=== PATIENT | male | born 1975 | race Caucasian/White ===

== ENCOUNTER 2019-01-21 12:20 | Day surgery (SDC) | payer BC ==
[~2019-01-21 12:20] MED LIST: ACETAMINOPHEN 1,000 MG/100 ML BTL IVPB ONE; CEFAZOLIN 1 Gram 1 GM/50 ML BAG IVPB ONE; CEFAZOLIN 1G VIAL IVP ONE; WATER STERILE FOR INJECTION 20 ML VIAL MC ONE
[2019-01-21] MEDS ORDERED: LIDOCAINE 2% MDV (20MG/ML) 20ML VIAL IV ONE (12:21)
[2019-01-21] MEDS ORDERED: DEXAMETHASONE 4 MG/ML 1ML VIAL IVP ONE (12:21)
[2019-01-21] MEDS ORDERED: DESFLURANE 240 ML BTL INH ONE (12:21)
[2019-01-21] MEDS ORDERED: KETOROLAC 30 MG/ML VIAL IVP ONE (12:21)
[2019-01-21] MEDS ORDERED: MIDAZOLAM HCL 2MG/2ML VIAL IV ONE (12:21)
[2019-01-21] MEDS ORDERED: FENTANYL PF 100MCG/2ML VIAL IV ONE (12:21)
[2019-01-21] MEDS ORDERED: ONDANSETRON HCL IV 4 MG/2 ML VIAL IVP ONE (12:21)
[2019-01-21] MEDS ORDERED: PROPOFOL 10 MG/ML VIAL IV ONE (12:21)
[2019-01-21] MEDS ORDERED: RINGERS SOLUTION,LACTATED 1,000 ML IV ONE (13:55)
[2019-01-21] MEDS ORDERED: CEFAZOLIN 2 Gram 2 GM/50 ML BAG IVPB SCH (14:30)
[2019-01-21] MEDS ORDERED: METHYLPREDNISOLONE 40MG/VIAL IU ONE (15:59)
[2019-01-21] MEDS ORDERED: BUPIVACAINE 0.5% W/EPI MPF 30 ML VIAL SQ ONE (16:00)
[2019-01-21] MEDS ORDERED: HYDROCODONE/APAP 7.5/325MG TABLET PO ONE (16:45)
--- NOTE | 2019-01-24 09:51 | Operative Note ---
DATE OF SURGERY: 01/21/2019 PREOPERATIVE DIAGNOSIS: Left knee arthrosis medial plica. POSTOPERATIVE DIAGNOSIS: Left knee arthrosis medial plica. OPERATION: 1. Diagnostic arthroscopy. 2. Arthroscopic debridement. 3. Chondroplasty of patella and femoral trochlea. 4. Arthroscopic excision of medial plica. SURGEON: Berhane Quesada M.D. ANESTHESIA: LMA. ANESTHESIA PROVIDER: PATRICIA Bhagat CRNA COMPLICATIONS: None. ESTIMATED BLOOD LOSS: None. 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 INDICATION: A 43-male who has had persistent pain and dysfunction in his knee for several years. 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 He is scheduled for the procedure above. I explained all risks and benefits in detail for his diagnosis and procedures, including, but not limited to, infection, nerve injury, vessel injury, persistent pain symptoms, numbness, tingling in his knee, infected arthrosis of his knee and the procedure could not cure the condition, could require any further procedures and all of his questions were answered for him, the course was outlined and he agreed to proceed. PROCEDURE: The patient was brought to the OR and placed in the supine position and prepped for surgery. LMA anesthesia was induced. His left lower extremity and knee were prepped and draped in sterile fashion. The left knee was prepped again with Chloraprep and draped and intraoperative timeout was performed. Next, the knee was injected with 0.5% Marcaine with epinephrine. Standard superior and lateral portals were established, an inferior medial lateral portal was established, diagnostic arthroscopy was performed. The parapatellar pouch, suprapatellar pouch had significant inflammation. The medial gutter revealed a large degenerative plica, obviously rubbing in the medial trochlea. We immediately debride that with a shaver to a smooth stable surface to the underlining of the joint surface and she had significant grade 3 to 4 chondromalacia throughout the patellofemoral compartment. We did extensive debridement and shaving of this area, removing any coarse cartilage fragments and smoothing it as the best we could with a significant disease here. Basically, the remainder of the knee was normal. The medial compartment again normal, the meniscus was normal, the cartilage here was normal, the intercondylar notch was normal, the ACL and PCL intact. The lateral compartment again completely normal. The meniscus here was probed in its entirety and was normal and the cartilage here was normal. This completed the procedure. The scope and instruments removed. The wound was covered with Xeroform gauze, sterile dressing applied, Boston wrap. The patient tolerated the procedure well. No intraoperative complications. The sponge, needle, and lap counts were correct. To recovery room stable and intact. Can be discharged as an outpatient. He will have [facility] home therapy nurse. Follow up in 2 weeks. R[facility]EN
== END 2019-01-21 16:50 | disposition home or self-care (01) ==
LOC: SUR 12:20
PROVIDERS: ATTEND Orthopaedic Surgery
DX: M17.12 Unilateral primary osteoarthritis, left knee (principal)
CPT/HCPCS: J0690; J1030; J1885; J2405; J7120